=== PATIENT | male | born 1960 | race Caucasian/White ===

== ENCOUNTER → 2017-09-07 | Outpatient (CLI) | payer OTHER ==
--- NOTE | 2017-09-10 08:43 | RADIOLOGY REPORT PS360 ---
MRI-L-SPINE W/O, MRI-3D RENDERING/MYELOGRAM Ordering Physician: Jose Vivar MD Patient Age: 56 years: Male HISTORY: RT SIDE LOW BACK PAIN, LUMBAR DDD, LUMBAR FACET ARTHROPATH Low back pain tailbone pain 1 year or greater. Right leg pain numbness tingling. TECHNIQUE: Sagittal STIR, T1, T2, axial T1 and T2. On 1.5T Siemens wide bore MRI. 3-D MR myelogram image set obtained & performed on MRI workstation. Additional sagittal thin section T2 weighted dataset obtained from this latter acquisition as well (---76 CPT) COMPARISON :Plain films lumbar spine August 2017 FINDINGS --------- Lumbar vertebral bodies are intact. No compression fractures or significant lesions L5/S1.: . Focal right paracentral disc extrusion right paracentral. This developing focal disc herniation, focally indents the thecal sac to the right paracentral- it appears to displace the S1 and possibly S2 nerve root within the thecal sac. . . Generous Facet hypertrophy and arthropathy bilaterally. This along with features yields moderate recess & foraminal encroachment bilaterally most evident to the right.. Mild disc space narrowing and loss of hydration. Mild reactive endplate changes at L5/S1 L4/5.: Degenerative disc changes slight loss of height. Minimal disc bulge which becomes most evident towards foramen bilateral. Mild/moderate Facet hypertrophy. Resulting Mild/moderate recess & foraminal encroachment bilateral. Can only slight tapering of thecal sac at this level. L3/4. Disc intact. Well-hydrated disc height well-maintained with minor facet arthropathy L2/3. Disc intact unremarkable. Facets intact. Neural foramen widely patent at L1/2. Disc intact with scant disc prominence. No significant bulge. No foramen widely patent graft T12/S1 disc intact. Conus unremarkable ending at L2 left Right kidney. Benign renal cyst 2 cm at mid to lower portion right kidney Left kidney small 12 mm cyst anteriorly 3-D MRI myelogram image nicely demonstrates focal indentation upon the thecal sac to the right at L5/S1 level reflecting the described disc protrusion. At the L4/5 level there is diminished filling of nerve root sleeves bilaterally at this level particularly right which may reflect the moderate foraminal encroachment IMPRESSION . 1. L5/S1.. Focal disc protrusion/extrusion right paracentral. This developing Disc herniation indents thecal sac & displaces the right S1 and S2 nerve root within thecal sac.- This most significant finding finding on today's study. [facility].... Also Moderate bilateral recess and foraminal encroachment right greater than left 2. L4/5. Mild foraminal disc bulge along with mild/moderate facet hypertrophy..- Yields Mild to moderate recess & foraminal encroachment & slight less filling of nerve root sleeves at this level ..
== END ==
LOC: RAD 08:30
DX: M54.41 Lumbago with sciatica, right side (principal); M51.36 Other intervertebral disc degeneration, lumbar region; M46.96 Unspecified inflammatory spondylopathy, lumbar region